=== PATIENT | male | born 1945 | race Caucasian/White ===

== ENCOUNTER 2020-06-09 03:09 | Observation (INO) | payer MEDICARE, OTHER, SELFPAY ==
[2020-06-09] VITALS (7 sets, daily range): BP systolic 120–161; BP diastolic 51–84; PULSE 81–105; RESP 16–18; TEMP 36.4–36.9; O2SAT 94–97; BMI 32.2
--- NOTE | ~2020-06-09 | XR_ITS ---
EXAMINATION: XR abdomen/kub 1V EXAM DATE: 06/09/2020 14:58 INDICATION: Right renal mass. TECHNIQUE: Frontal projection(s) of the abdomen for interpretation. Correlation is made to right hip exam 2007. FINDINGS: Right proximal femoral intramedullary well-defined peripherally sclerotic region again see n, benign finding. Nonobstructive bowel gas pattern with moderate amount of colonic stool. No suspici ous calcifications. Lung bases unremarkable. IMPRESSION: Unremarkable KUB exam. Reviewed, dictated and finalized at location B. LS SALES REPRESENTATIVE IMPRESSION: Unremarkable KUB exam.
--- NOTE | ~2020-06-09 | US_ITS ---
EXAMINATION: US retroperitoneal comp EXAM DATE: 06/09/2020 14:21 INDICATION: Hematuria. TECHNIQUE: Multiple grayscale and Doppler images of the kidneys were obtained (by a technologist who performed the scan) and subsequently reviewed. There is no prior study for comparison. FINDINGS: Right kidney: There is normal contour and echogenicity. It measures 9.4 x 5.4 x 5.5 centimeters. The re is a right renal hypoechoic lesion measuring 2.5 cm, appears most likely solid, could be renal hpuc l cancer. There is a cyst measuring 2.8 cm. There is no hydronephrosis. Left kidney: There is normal contour and echogenicity. It measures 11.2 x 4.6 x 7.1 centimeters. Th ere are no focal renal lesions identified. There is no hydronephrosis. Bladder unremarkable. More catheter in position. IMPRESSION: Right renal mass, possible renal cell cancer. Considering history provided, consult an d follow-up CT urogram would be appropriate. Reviewed, dictated and finalized at location B. APPLICATION ENGINEER IMPRESSION: Right renal mass, possible renal cell cancer. Considering history p rovided, consult and follow-up CT urogram would be appropriate.
--- NOTE | ~2020-06-09 | CT_ITS ---
EXAMINATION: CT abdomen pelvis wo/w con EXAM DATE: 06/09/2020 15:18 INDICATION: Right renal mass. TECHNIQUE: Spiral CT of the abdomen and pelvis was performed without contrast. Axial, coronal and sag ittal images were reviewed. The dose-length product (DLP) for this examination was 1983.01 mGy-cm. The exposure was tailored according to patient size (auto mA exposure control), and iterative reconst ruction (ASIR) was used as additional dose reduction technique. Correlation is made to ultrasound ear lier same date. FINDINGS: There is a 2.3 cm right renal mass in the midpole, measuring 31 Hounsfield units precontras t and 43 Hounsfield units postcontrast, most likely solid mass. No adjacent inflammation or evidence of upper urinary tract infection to suggest abscess. There is no nephrolithiasis or hydronephrosis. The prostate is moderately enlarged. There is More catheter in the bladder. Adrenal gland hyperpla lenard. The liver, spleen, and pancreas are unremarkable. Gallbladder not identified, patient likely cunningham s had cholecystectomy. There is no retroperitoneal or pelvic lymphadenopathy. There is moderate sc attered arteriosclerotic disease. The appendix is normal. There is mild scattered colonic diverticulosis. There is no adjacent inflamm atory change to suggest diverticulitis. The stomach and small bowel are unremarkable. There is expec concetta amount of colonic stool. No free intraperitoneal gas. The heart is normal in size. There are no pericardial or pleural effusions. The lung bases are unremarkable. Benign-appearing right proxim al femoral shaft peripherally sclerotic intramedullary region. Sizable bridging endplate osteophytes. IMPRESSION: 1. Hypodense right renal lesion, demonstrates mild enhancement and appear to be solid on ultrasound. Appearance is suspicious for renal cell cancer. 2. Scattered colonic diverticulosis. 3. Moderate prostatomegaly. Reviewed, dictated and finalized at location B. L COREMAKER IMPRESSION: 1. Hypodense right renal lesion, demonstrates mild enhancement and appear to b e solid on ultrasound. Appearance is suspicious for renal cell cancer. 2. Scattered colonic diverticulosis. 3. Moderate prostatomegaly.
[2020-06-09] MEDS: LIDOCAINE HCL 2% GEL UROJET 10 ML PKG (04:11)
[2020-06-09 04:59] LABS: Basophils Absolute Auto 0.1 K/mm3 (0.0-0.1); Basophils Percent Auto 0.4 % (0.2-1.2); Eosinophils Absolute Auto 0.3 K/mm3 (0-0.3); Eosinophils Percent Auto 1.8 % (0-4.4); Hematocrit 38.2 % (42.0-52.0); Hemoglobin 12.7 g/dL (14.0-18.0); Immature Granulocyte Absolute 0.33 K/mm3 (0.00-0.031); Immature Granulocyte Percent A 2.1 % (0-0.5); Lymphocytes Absolute Auto 1.91 K/mm3 (0.9-3.2); Lymphocytes Percent Auto 12.2 % (18.3-44.2); Mean Corpuscular HGB Conc 33.2 g/dl (32-36); Mean Corpuscular Hemoglobin 32.6 pg (26-34); Mean Corpuscular Volume 97.9 fl (80-100); Mean Platelet Volume 10.2 fl (7.4-10.4); Monocytes Absolute Auto 1.7 K/mm3 (0.1-0.6); Monocytes Percent Auto 10.5 % (2.6-8.5); Neutrophils Absolute Auto 11.5 K/mm3 (1.3-6.7); Platelet Count Result 332 k/mm3 (150-375); Red Cell Distribution Width 12.8 % (11.5-14.5); White Blood Count 15.7 K/mm3 (4.5-10.0)
[2020-06-09 05:07] LABS: Add Urine Microscopic? YES; Appearance Urine Clear (Clear); Bacteria Urine Trace /hpf; Bilirubin Urine Negative (Negative); Blood Urine 3+ (Negative); Color Urine Colorless (Yellow); Glucose Urine UA Negative (Negative); Ketones Urine Negative (Negative); Leukocyte Esterase Ur Negative LEU/UL (Negative); Nitrate Urine Negative (Negative); Protein Urine Negative (Negative); RBC Urine >75 /hpf (0-2); Specific Grav Ur 1.009 (1.001-1.035); Urobilinogen Urine Negative mg/dL (<2.0)
[2020-06-09 05:15] LABS: Alanine Aminotransferase 26 U/L (4-50); Albumin Level 4.1 g/dL (3.5-5.1); Alkaline Phosphatase 97 U/L (38-126); Anion Gap 11 mmol/L (8-16); Aspartate Amino Transferase 25 U/L (17-59); Bilirubin,Total 0.3 mg/dL (0.2-1.3); Blood Urea Nitrogen 41 mg/dL (9-20); Calcium 9.3 mg/dL (8.4-10.2); Carbon Dioxide 21 mmol/L (22-30); Chloride 100 mmol/L (98-107); Estimated CRCL calculation 35 ml/min; Estimated Glomerular Filt Rate 33; Glucose 214 mg/dL (75-110); Potassium 4.4 mmol/L (3.4-5.0); Sodium 132 mmol/L (137-145)
--- NOTE | 2020-06-09 05:38 | ED.MALEGU ---
HPI - Male Genitourinary General Chief complaint: Urogenital-Male <Sami Cruz MD - Last Filed: 06/09/20 05:43> Stated complaint: hematuria <Sami Cruz MD - Last Filed: 06/09/20 05:43> Time Seen by Provider: 06/09/20 03:35 <Sami Cruz MD - Last Filed: 06/09/20 05:43> History of Present Illness HPI Narrative: Patient is a 75-year-old male who presents the ER with hematuria. Patient reports he was admitted last week at [facility] due to experiencing urinary retention. He had a More catheter placed. He had 2 L drained from his bladder. He is observed in the hospital. To start antibiotics. Daughter has brought outside lab work. It appears his creatinine was elevated and upon discharge normalized to 1.3. Also. She had a white blood cell count of 22,000. He was started on Levaquin. He had a negative Covid test on 06/02/2020. Patient reports today he began having blood in his urine and decreased urinary output from his More. He continues to take his Flomax. He supposed follow-up with Dr. Dillon with urology in [place] on 06/16/2020. Patient reports has been having night sweats since being discharged. <Sami Cruz MD - Last Filed: 06/09/20 05:43> Related Data Home medications: Home Medications Medication Instructions Recorded Confirmed alogliptin 25 mg PO DAILY 06/09/20 amlodipine 10 mg PO DAILY 06/09/20 aspirin [Aspir-81] 81 mg PO DAILY 06/09/20 06/09/20 atorvastatin 80 mg PO HS 06/09/20 carvedilol 25 mg PO BID 06/09/20 citalopram 20 mg PO DAILY 06/09/20 cyanocobalamin (vitamin B-12) 1,000 mcg PO DAILY 06/09/20 diltiazem HCl 360 mg PO DAILY 06/09/20 docusate sodium 100 mg PO BID 06/09/20 furosemide 40 mg PO DAILY 06/09/20 levofloxacin [Levaquin] 500 mg PO DAILY 06/09/20 lisinopril 40 mg PO DAILY 06/09/20 metformin 1,000 mg PO DAILY 06/09/20 06/09/20 nitrofurantoin monohyd/m-cryst 100 mg PO Q12H 06/09/20 [Macrobid] spironolactone 25 mg PO DAILY 06/09/20 tamsulosin 0.4 mg PO DAILY 06/09/20 <Sami Cruz MD - Last Filed: 06/09/20 05:43> Allergies/Adverse reactions: Allergies Allergy/AdvReac Type Severity Reaction Status Date / Time clonidine Allergy Verified 06/09/20 14:49 <Sami Cruz MD - Last Filed: 06/09/20 05:43> Review of Systems Review of Systems: All systems reviewed & are unremarkable except as noted in HPI and below <Sami Cruz MD - Last Filed: 06/09/20 05:43> Constitutional: Constitutional: Reports chills, Reports fever(s) and Denies weakness <Sami Cruz MD - Last Filed: 06/09/20 05:43> ENT: Denies nasal congestion and Denies sore throat <Sami Cruz MD - Last Filed: 06/09/20 05:43> Cardiovascular: Cardiovascular: Denies chest pain, Denies rapid heart rate and Denies radiating jaw, neck or arm pain <Sami Cruz MD - Last Filed: 06/09/20 05:43> Gastrointestinal: Gastrointestinal: Denies abdominal pain, Denies nausea and Denies vomiting <Sami Cruz MD - Last Filed: 06/09/20 05:43> Genitourinary: Genitourinary: Reports hematuria, Reports oliguria and Denies dysuria <Sami Cruz MD - Last Filed: 06/09/20 05:43> [facility] Past Medical History Medical History: Medical History (Updated 06/09/20 @ 15:50 by oRnnie Galindo MD) BPH (benign prostatic hyperplasia) Depression Diabetes Hypertension <Sami Cruz MD - Last Filed: 06/09/20 05:43> Surgical History Surgical History: Surgical History (Updated 06/09/20 @ 05:42 by Sami Cruz MD) No pertinent past surgical history <Sami Cruz MD - Last Filed: 06/09/20 05:43> Family History Family History: Family History (Updated 12/04/15 @ 23:19 by DOCTOR UNKNOWN) Father Hypertension Cerebrovascular accident Family history of diabetes mellitus in first degree relative Sibling Hypertension Mother Family history of heart disease in male family member be
--- NOTE | 2020-06-09 05:48 | PC.NURSE ---
Faxed patient chart to [facility]...ATTN: Js @ 05:47
--- NOTE | 2020-06-09 07:15 | PC.NURSE ---
pt resting quietly on stretcher with at bedside. continuous bladder irrigation continues with clear return in jain bag. waiting further orders.
--- NOTE | 2020-06-09 15:45 | PC.NURSE ---
This patient, Ronald Corona, was admitted to 3 [facility] Surg Room 315-01. Patient/family oriented to hospital policies and general routines including ID bracelet, bed and alarms, visiting hours, pain management, procedures, bathroom and other care routines, personal items, smoking policy, room service/diet, and visiting hours. Information on how to activate the Rapid Response Team has been discussed. Patient/Family are encouraged to report perceived risks to care and to ask questions if they do not understand what they are told or what they should do.
--- NOTE | 2020-06-09 16:03 | WPDURCON ---
Assessment and Plan Assessment and plan (1) Hematuria: Qualifiers: Hematuria type: gross Qualified Code(s): R31.0 - Gross hematuria Code(s): R31.9 - Hematuria, unspecified Status: Acute Assessment and Plan: Resolving on CBI, keep CBI running, wean to off when clear. Keep jain catheter in 7-10 days then follow up for catheter removal as outpatient. Manually irrigate jain PRN. Collect a urine culture. (2) Mass of right kidney: Code(s): N28.89 - Other specified disorders of kidney and ureter Status: Acute Assessment and Plan: Will address as an outpatient, no plans for surgical intervention at this time. (3) Acute urinary retention: Code(s): R33.8 - Other retention of urine Status: Acute Assessment and Plan: Continue Flomax, start Finasteride. Patient has severely enlarged prostate on CT scan. Will discuss further management once a voiding trial is complete. Urology Consult Note HPI Date Seen: 06/09/20 Requesting Physician: Jose Rafael Be MD Primary Care Provider: [facility] Consult Narrative Narrative: Ronald Corona is a 75 year old male who presents to the ER today for new onset of gross hematuria that started overnight last night. He was seen on in the urgent care locally for what he thought was a UTI, he was given Levaquin and sent home. He then progressively noted a weakened urine stream, straining, hesitancy and incomplete emptying and went to [facility] on Monday. He had a jain placed and had 2L of urine drained from his bladder. He was then discharged home to follow up with his Urologist at the [facility]. He has been seeing his Urologist at the [facility] for years for BPH and is on Flomax for this. He has had multiple episodes of gross hematuria, UTI's and retention/BPH exacerbations over the past few years. He is currently on CBI with a [address], the urine is draining and is clear on CBI. His UA is suggestive of a possible UTI, even though he finished Levaquin yesterday according to his daughter who accompanies him. A FAIZAN was done to rule out bladder clots, incidentally a right renal mass was found on FAIZAN suggestive of a Renal Cell Carcinoma. A CT scan abdomen/pelvis with and without contrast was then ordered by myself immediately following the FAIZAN, which showed a severely enlarged prostate, a right renal mass which represents a renal cell carcinoma and jain catheter in place. His WBC is slightly elevated at 15.7 and Creatinine of 2.00. Vitals are stable. Review of Systems Cardiovascular: Cardiovascular: Denies chest pain Respiratory: Respiratory: Reports no additional respiratory complaints Gastrointestinal: Gastrointestinal: Denies abdominal pain, Denies nausea and Denies vomiting Genitourinary: Genitourinary: Reports hematuria and Reports other (retention of urine, jain in place) [facility] Past Medical History Medical History BPH (benign prostatic hyperplasia) Depression Diabetes Hypertension Surgical History Surgical History No pertinent past surgical history Family History Family History Father Hypertension Cerebrovascular accident Family history of diabetes mellitus in first degree relative Sibling Hypertension Mother Family history of heart disease in male family member before age 55 Social History Social History Smoking packs per day: 1.5 Smoking cigarettes per day: 30.0 Years smoked: 40 Smoking pack-years: 60.00 Smoking status: Former smoker Tobacco type: cigarettes and smokeless tobacco Smoking end date: 06/09/79 Alcohol intake: former Substance use: never Gender identity (if verbalized by the patient): Male Sexual Orientation (if Verbali
[2020-06-09 16:50] LABS: Glucose Point of Care 291 (65-105)
[2020-06-09] MEDS: SODIUM CHLORIDE 0.9% IV 1,000 ML 125 ML IV CONT (17:51)
[2020-06-09] MEDS: INSULIN ASPART (*BKC) 100 UNITS/ML SUB-Q (18:55)
--- NOTE | 2020-06-09 20:41 | PM.IMHP ---
H&P: HPI History of Present Illness Date/Time: 06/09/20 20:41 Chief Complaint: Hematuria Narrative: Ronald Corona is a 75 year old male admitted to [facility] this past week. The patient came to the emergency room today because of hematuria. He did have an indwelling More catheter placed and immediately drained 2 L out of his bladder. He was observed in the hospital and then started on antibiotics. The patient's. The patient was started on Levaquin and Macrobid. The patient stated he has since completed those antibiotics. The patient had a negative COVID test on 06/02/2020. The patient reported that he had blood in his urine and decreased urinary output from his More catheter. The patient has been taking his Flomax as prescribed. The patient has an appointment to follow-up with his urologist Dr. alvarenga 06/16/20. The patient has a history of BPh. 15.7 and his H&H 12.7 and 38.2. His urine had blood in it but did not look infectious. His blood sugar was 291. Creatinine 2.0. BUN 41. Patient has a CBI and was starting to clear the urine. It it was noted that the patient should keep the More catheter for 7 -10 days and have it removed outpatient. Patient was noted to have a mass in his right kidney and it was noted that that will be addressed outpatient. Is recommended that the patient continue with his Flomax and finasteride was started. Patient was noted to have a severely enlarged prostate on the CT scan. CT the abdomen and pelvis was read as hypodense right renal lesion, demonstrates mild enhancement and appeared to be solid on ultrasound. Appearance is suspicious for renal cell carcinoma. Scattered colonic diverticulosis. Moderate prostatomegaly. Retroperitoneal ultrasound was read as right renal mass possible renal cell cancer. The patient is being admitted for observation on the date of service of 06/09/2020 ER had a note that they were trying to send him to [facility] but they did not have a bed for him and care management explained that we would take his insurance here. Review of Systems Review of Systems: All systems reviewed & are unremarkable except as noted in HPI and below Constitutional: Constitutional: Reports as per HPI and Reports no additional constitutional complaints Eyes: Eyes: Reports as per HPI and Reports no additional eye complaints ENT: Reports system reviewed and no additional complaints, except as documented and Reports Normal hearing present Cardiovascular: Cardiovascular: Reports no additional cardiovascular complaints Respiratory: Respiratory: Reports no additional respiratory complaints and Reports no additional respiratory complaints Gastrointestinal: Gastrointestinal: Reports as per HPI and Reports no additional gastrointestinal complaints Musculoskeletal: Musculoskeletal: Reports no additional musculoskeletal complaints Integumentary/Breasts: Skin/Breast: Reports system reviewed and no additional complaints, except as docu and Reports as per HPI Neurologic: Reports system reviewed and no additional complaints, except as documented, Reports as per HPI and Reports Normal hearing present Psychiatric: Psychiatric: Reports no additional psychiatric complaints and Reports as per HPI Endocrine: Endocrine: Reports no additional endocrine complaints Hematologic/Lymphatic: Hematologic/Lymphatic: Reports no additional hematologic/lymphatic complaints Allergic/Immunologic: Allergic/Immunologic: Reports no additional allergic/immunologic complaints [facility] Past Medical History Medical History (Updated 06/09/20 @ 21:15 by Jaycee Dumont NP) Atrial fibrillation BPH (benign prostatic hyperplasia) Cataracts, bilateral Unable to have surgery due to COVID pandemic Congestive heart failure Depression Diabetes DM2 (diabetes mellitus, type 2) Glaucoma Hyperlipidemia Hypertension Surgical History Surgical History (Updated 06/09/20 @ 21:04 by Jaycee Dumont NP) H/O c
[2020-06-09 22:08] LABS: Hematocrit 35.9 % (42.0-52.0)
[2020-06-09 22:15] LABS: Glucose Point of Care 180 (65-105)
[2020-06-09] MEDS: carvediloL 25 MG TABLET PO (22:24)
[2020-06-09] MEDS: ATORVASTATIN 40 MG TABLET 80 MG PO (22:24)
[2020-06-10] MEDS: SODIUM CHLORIDE 0.9% IV 1,000 ML 125 ML IV CONT (03:38)
[2020-06-10 03:52] LABS: Basophils Absolute Auto 0.1 K/mm3 (0.0-0.1); Basophils Percent Auto 0.6 % (0.2-1.2); Eosinophils Absolute Auto 0.4 K/mm3 (0-0.3); Eosinophils Percent Auto 2.4 % (0-4.4); Hematocrit 38.7 % (42.0-52.0); Hemoglobin 12.9 g/dL (14.0-18.0); Immature Granulocyte Absolute 0.25 K/mm3 (0.00-0.031); Immature Granulocyte Percent A 1.6 % (0-0.5); Lymphocytes Absolute Auto 2.37 K/mm3 (0.9-3.2); Lymphocytes Percent Auto 15.4 % (18.3-44.2); Mean Corpuscular HGB Conc 33.3 g/dl (32-36); Mean Corpuscular Hemoglobin 32.1 pg (26-34); Mean Corpuscular Volume 96.3 fl (80-100); Mean Platelet Volume 9.6 fl (7.4-10.4); Monocytes Absolute Auto 1.8 K/mm3 (0.1-0.6); Monocytes Percent Auto 11.6 % (2.6-8.5); Neutrophils Absolute Auto 10.6 K/mm3 (1.3-6.7); Neutrophils Percent Auto 68.4 % (45.5-73.1); Platelet Count Result 375 k/mm3 (150-375); Red Blood Count 4.02 M/mm3 (4.6-6.20); Red Cell Distribution Width 12.6 % (11.5-14.5); White Blood Count 15.4 K/mm3 (4.5-10.0)
[2020-06-10 04:00] LABS: Hemoglobin A1C 8.1 % (<5.7)
[2020-06-10 04:17] LABS: Anion Gap 8 mmol/L (8-16); Blood Urea Nitrogen 25 mg/dL (9-20); Calcium 9.4 mg/dL (8.4-10.2); Carbon Dioxide 25 mmol/L (22-30); Chloride 105 mmol/L (98-107); Estimated CRCL calculation 53 ml/min; Estimated Glomerular Filt Rate 54; Glucose 199 mg/dL (75-110); Potassium 4.8 mmol/L (3.4-5.0); Sodium 138 mmol/L (137-145)
[2020-06-10 06:00] VITALS: BP 138/75; PULSE 91; RESP 16; TEMP 36.2; O2SAT 97
[2020-06-10 08:34] LABS: Glucose Point of Care 280 (65-105)
[2020-06-10 08:59] VITALS: PULSE 90
[2020-06-10] MEDS: carvediloL 25 MG TABLET PO (08:59)
[2020-06-10] MEDS: CITALOPRAM HYDROBROMIDE 20 MG TABLET PO (08:59)
[2020-06-10] MEDS: TAMSULOSIN HCL 0.4 MG CAPSULE PO (08:59)
[2020-06-10] MEDS: CYANOCOBALAMIN 1,000 MCG TABLET 1000 MCG PO (08:59)
[2020-06-10] MEDS: amLODIPine BESYLATE 5 MG TABLET 10 MG PO (08:59)
[2020-06-10 09:00] VITALS: O2SAT 95
[2020-06-10] MEDS: FINASTERIDE 5 MG TABLET PO (09:00)
[2020-06-10] MEDS: dilTIAZem HCL CD 180 MG CAP.ER.24H 360 MG PO (09:00)
[2020-06-10] MEDS: INSULIN ASPART (*BKC) 100 UNITS/ML SUB-Q ×2 (09:01→13:09)
[2020-06-10 09:24] LABS: Hematocrit 38.7 % (42.0-52.0); Hemoglobin 12.9 g/dL (14.0-18.0)
[2020-06-10 12:39] LABS: Glucose Point of Care 307 (65-105)
--- NOTE | 2020-06-10 12:56 | PM.DS ---
DS: Admitting Diagnosis Admitting Diagnosis Admitting Diagnosis: hematuria DS: Discharge Diagnosis Discharge Diagnosis (1) Hematuria: Qualifiers: Hematuria type: gross Qualified Code(s): R31.0 - Gross hematuria Code(s): R31.9 - Hematuria, unspecified Status: Acute (2) Mass of right kidney: Code(s): N28.89 - Other specified disorders of kidney and ureter Status: Acute (3) DEMETRIUS (acute kidney injury): Code(s): N17.9 - Acute kidney failure, unspecified Status: Acute (4) Acute urinary retention: Code(s): R33.8 - Other retention of urine Status: Acute (5) Hypertension: Code(s): I10 - Essential (primary) hypertension Status: Chronic (6) Hyperlipidemia: Code(s): E78.5 - Hyperlipidemia, unspecified Status: Chronic (7) Atrial fibrillation: Code(s): I48.91 - Unspecified atrial fibrillation Status: Chronic (8) Congestive heart failure: Code(s): I50.9 - Heart failure, unspecified Status: Chronic (9) Cataracts, bilateral: Code(s): H26.9 - Unspecified cataract Status: Chronic (10) Depression: Code(s): F32.9 - Major depressive disorder, single episode, unspecified Status: Acute (11) Glaucoma: Code(s): H40.9 - Unspecified glaucoma Status: Chronic (12) DM2 (diabetes mellitus, type 2): Code(s): E11.9 - Type 2 diabetes mellitus without complications Status: Chronic DS: Summary Hospital Course Reason for hospitalization: Patient is a 75-year-old man with a history of BPH, who presented to the emergency room with gross hematuria in his More catheter which was placed at [facility] 3 days prior to arrival due to urinary retention issues and was found to be retaining 2 L of urine. He was discharged from [facility] to follow-up with urology as an outpatient. Over the last 3 days he has noticed gross hematuria in his More catheter and intermittently feeling like it was not draining properly. He came to our emergency room and had some slight leukocytosis, normal neutrophil count, slight hyponatremia at 132, DEMETRIUS with a creatinine at 2.0, BUN 41, urinalysis showed 3+ blood, greater than 75 RBCs, no signs of acute infection. CT abdomen pelvis showed Hypodense right renal lesion, demonstrates mild enhancement and appear to be solid on ultrasound. Appearance is suspicious for renal cell cancer. Moderate prostatomegaly. The hospital and started on a CBI, with a urology consultation. Upon neurology's evaluation the CBI was already clearing up his hematuria. This was discontinued and he was discharged home later on with More catheter to stay in place for 7-10 days. He was continued on Flomax and started on finasteride. Urology instructed him to follow-up as an outpatient for further testing and workup on his renal mass. Patient understands and agrees the plan all questions answered. Hospital Course: See above Status at Discharge Cognitive/behavioral status at discharge: Stable, improved. Time Spent with Patient Time attestation: Total time spent providing and/or coordinating discharge services: 38 Time spent: Greater than 30 minutes Exam Narrative: Exam Narrative: General: 75-year-old man laying flat in bed, with clear urine in his More bag. Appears comfortable. In no acute distress. Skin: No jaundice or cyanosis. Good skin turgor. Neck: Full range of motion. Supple. Respiratory: Lungs are clear to auscultation bilaterally. No bony chest wall tenderness. Cardiovascular: The heart has a regular rate and rhythm without murmur. Lower extremities: No lower extremity edema. Distal pulses are easily palpated. No calf tenderness to palpation. Gastrointestinal: The abdomen is soft, nontender and nondistended with active bowel sounds. Psychiatric: Lucid and oriented. Memory intact. Neurologic: No focal deficits. Speech
[2020-06-10 14:00] VITALS: BP 138/41; PULSE 79; RESP 18; TEMP 36.3; O2SAT 95
== END 2020-06-10 16:00 | disposition home or self-care (01) ==
LOC: ANHED 11:57 → ANH3MEDSUR 14:27
PROVIDERS: Emergency Medicine; Nurse Practitioner; Physician Assistant; Admitting Provider Family Medicine; Emergency Provider Emergency Medicine; Visit Provider Internal Medicine
DX: R31.0 Gross hematuria (principal); R33.8 Other retention of urine; N28.89 Other specified disorders of kidney and ureter; N17.9 Acute kidney failure, unspecified; I11.0 Hypertensive heart disease with heart failure; I50.9 Heart failure, unspecified; E78.5 Hyperlipidemia, unspecified; E11.9 Type 2 diabetes mellitus without complications; F32.9 Major depressive disorder, single episode, unspecified; H40.9 Unspecified glaucoma; H26.9 Unspecified cataract; I48.91 Unspecified atrial fibrillation; N40.1 Benign prostatic hyperplasia with lower urinary tract symptoms; Z87.891 Personal history of nicotine dependence; Z79.84 Long term (current) use of oral hypoglycemic drugs
CPT/HCPCS: 36415; 74018; 74178; 76770; 80048; 80053; 81001; 82948; 83036; 85014; 85018; 85025; 87086; 96361; 96374; 99285; A9270; G0378; J0696; J1815; J7030; Q9967

== ENCOUNTER 2020-06-13 13:00 | Emergency (ER) | payer MEDICARE, OTHER, SELFPAY ==
[2020-06-13 13:15] VITALS: BP 137/65; PULSE 76; RESP 18; TEMP 36.7; O2SAT 97
--- NOTE | 2020-06-13 13:19 | ED.GENADULT ---
HPI - General Adult General Chief complaint: Urogenital-Male Stated complaint: catheter not draining Time Seen by Provider: 06/13/20 13:08 Source: patient Mode of arrival: ambulatory Limitations: no limitations History of Present Illness HPI narrative: Pt is a 75 yo M c/o his jain catheter not draining , having pressure in his bladder low abdominal area, started today. Patient states he had a Jain placed 2 weeks ago for the same complaint at another hospital. Last week he was seen here for gross hematuria had CBI done and admitted. Patient was evaluated by Dr. Dillard while he was admitted and has appointment to see him on Monday. Patient states that history he has history of enlarged prostate. Related Data Home Medications Medication Instructions Recorded Confirmed alogliptin 25 mg PO DAILY 06/09/20 06/09/20 amlodipine 10 mg PO DAILY 06/09/20 06/09/20 aspirin 81 mg PO DAILY 06/09/20 06/09/20 atorvastatin 80 mg PO HS 06/09/20 06/09/20 carvedilol 25 mg PO BID 06/09/20 06/09/20 citalopram 20 mg PO DAILY 06/09/20 06/09/20 cyanocobalamin (vitamin B-12) 1,000 mcg PO DAILY 06/09/20 06/09/20 diltiazem HCl 360 mg PO DAILY 06/09/20 06/09/20 docusate sodium 100 mg PO BID 06/09/20 06/09/20 furosemide 40 mg PO DAILY 06/09/20 06/09/20 levofloxacin 500 mg PO DAILY 06/09/20 06/09/20 lisinopril 40 mg PO DAILY 06/09/20 06/09/20 metformin 1,000 mg PO DAILY 06/09/20 06/09/20 nitrofurantoin monohyd/m-cryst 100 mg PO Q12H 06/09/20 06/09/20 [Macrobid] spironolactone 25 mg PO DAILY 06/09/20 06/09/20 tamsulosin 0.4 mg PO DAILY 06/09/20 06/09/20 Allergies Allergy/AdvReac Type Severity Reaction Status Date / Time clonidine Allergy Rash Verified 06/09/20 16:13 Review of Systems Review of Systems: All systems reviewed & are unremarkable except as noted in HPI and below Constitutional: Constitutional: Denies body ache(s), Denies chills, Denies excessive sweating, Denies fatigue, Denies fever(s), Denies headache(s), Denies lethargy, Denies malaise, Denies weakness and Denies weight loss Eyes: Eyes: Denies blurry vision, Denies change in vision and Denies loss of vision ENT: Denies dizziness, Denies ear discharge, Denies headache(s), Denies lip swelling, Denies epistaxis, Denies nasal congestion, Denies neck pain, Denies throat swelling and Denies tongue swelling Cardiovascular: Cardiovascular: Denies chest pain, Denies chest pain at rest, Denies chest pain with activity, Denies diaphoresis, Denies rapid heart rate, Denies edema, Denies irregular heart rhythm, Denies lightheadedness, Denies palpitations, Denies dyspnea and Denies dyspnea on exertion Respiratory: Respiratory: Denies chest congestion, Denies cough, Denies hemoptysis, Denies dyspnea and Denies dyspnea on exertion Gastrointestinal: Gastrointestinal: Denies abdominal pain, Denies melena, Denies hematochezia, Denies diarrhea, Denies nausea, Denies vomiting and Denies hematemesis Musculoskeletal: Musculoskeletal: Denies abnormal gait, Denies deformity, Denies joint swelling, Denies limited range of motion, Denies neck pain and Denies numbness Neurologic: Denies Abnormal speech present, Denies abnormal gait, Denies confusion, Denies dizziness, Denies headache(s), Denies focal weakness, Denies loss of vision, Denies numbness, Denies Other visual disturbances, Denies Sensory deficit (Neuro) and Denies weakness Psychiatric: Psychiatric: Denies confusion, Denies depression, Denies auditory hallucinations, Denies homicidal ideation and Denies suicidal ideation Endocrine: Endocrine: Denies cold intolerance, Denies excessive sweating, Denies fatigue, Denies heat intolerance and Denies palpitations Hematologic/Lymphatic: Hematologic/Lymphatic: Denies easy bleeding and Denies easy bruising Allergic/Immunologic: Allergic/Immunologic: Denies lip swelling, Denies throat swelling and Denies tongue swelling PMFSH Past Medical History Medical History (Reviewed 06/13/20 @ 13:21 by Salvador Cook
--- NOTE | 2020-06-13 13:35 | PC.NURSE ---
patient here with urinary retention. see initial notes. small amount of red colored urine in jain bag from home. attempted bladder scan but does not appear accurate. Dr. Rubio to bedside with ultrasound. bladder appears to be distended. jain flushed with small amount of sterile water. immediate return of 1000+ red colored urine. jain bag replaced with new bag.
[2020-06-13 13:53] LABS: Add Urine Microscopic? YES; Appearance Urine Clear (Clear); Bacteria Urine 2+ /hpf; Bilirubin Urine Negative (Negative); Blood Urine 2+ (Negative); Color Urine Red (Yellow); Glucose Urine UA 1+ mg/dL (Negative); Ketones Urine 1+ mg/dL (Negative); Leukocyte Esterase Ur 1+ LEU/UL (Negative); Mucus Urine Few /lpf; Nitrate Urine Positive (Negative); Protein Urine 2+ mg/dL (Negative); RBC Urine >75 /hpf (0-2); Specific Grav Ur 1.013 (1.001-1.035); Urobilinogen Urine Negative mg/dL (<2.0); WBC Urine >75 /hpf
--- NOTE | 2020-06-13 15:15 | PC.NURSE ---
2nd bag of NS started for CBI. total of 2000ml out when catheter was initiated. resting on stretcher. feels better. still concerned on solution for hematuria and need for catheter. has appt with urologist on Monday.
--- NOTE | 2020-06-13 16:30 | PC.NURSE ---
jain care and instruction given to patient's daughter. will change him to a regular drainage bag later tonight. has larger sized CBI bag on now. leg bag also given to patient. urinal given
== END 2020-06-13 17:06 | disposition home or self-care (01) ==
PROVIDERS: Emergency Provider Emergency Medicine
DX: N40.1 Benign prostatic hyperplasia with lower urinary tract symptoms (principal); R33.8 Other retention of urine; R31.0 Gross hematuria; C64.9 Malignant neoplasm of unspecified kidney, except renal pelvis; I48.91 Unspecified atrial fibrillation; I50.9 Heart failure, unspecified; E11.9 Type 2 diabetes mellitus without complications; E78.5 Hyperlipidemia, unspecified; I11.0 Hypertensive heart disease with heart failure; H40.9 Unspecified glaucoma; Z79.82 Long term (current) use of aspirin; Z79.84 Long term (current) use of oral hypoglycemic drugs; H26.9 Unspecified cataract; Z87.891 Personal history of nicotine dependence
CPT/HCPCS: 51700; 81001; 87086; 99283; J0690